=== PATIENT | male | born 2000 | race Caucasian/White ===

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

== ENCOUNTER 2021-01-29 23:25 | Emergency (ER) | payer MEDICAID, OTHER ==
[~2021-01-29] VITALS: Ht 177.8 cm; Wt 68.2 kg
[~2021-01-29 23:25] MED LIST changes: -CefTRIAXone 250MG IM Kit w/LIDOcaine IM ONE; -CefTRIAXone 250MG inj IM ONE; -azithromycin 250mg tablet PO ONE; -ondansetron 4mg rapidly disintigrating tab PO ONE
[2021-01-29 23:31] VITALS: BP 110/71
== END 2021-01-30 01:21 | disposition home or self-care (01) ==
LOC: ER 23:26
DX: S02.5XXA Fracture of tooth (traumatic), initial encounter for closed fracture (principal); S09.90XA Unspecified injury of head, initial encounter; S10.91XA Abrasion of unspecified part of neck, initial encounter; K08.89 Other specified disorders of teeth and supporting structures; Y08.89XA Assault by other specified means, initial encounter; Y93.89 Activity, other specified; Y92.89 Other specified places as the place of occurrence of the external cause; Y99.8 Other external cause status
CPT/HCPCS: 70450; 70486; 72125; 73000; 73030; 99285